=== PATIENT | male | born 1985 | race Caucasian/White ===

== ENCOUNTER 2019-11-28 02:54 | Emergency (ER) | payer OTHER ==
--- NOTE | 2019-11-28 03:26 | EDM.PDOC ---
ED HPI GENERAL MEDICAL PROBLEM - General Chief Complaint: Burn Stated Complaint: CHEMICAL PATRICIO TO FACE Time Seen by Provider: 11/28/19 03:10 Source of Information: Reports: Patient History Limitations: Reports: No Limitations - History of Present Illness INITIAL COMMENTS - FREE TEXT/NARRATIVE: This is a 34-year-old male. He was using a beta Cyfluthrin insecticide all day yesterday on and off and apparently got some on his face. He noted some burning yesterday evening and he washed his face thoroughly it did not seem to help so use soap and water to wash his face and that did not seem to help his face is still burning and slightly red so he comes to the ER for evaluation. He says he decontaminated himself according to the MSDS for this insecticide. He wants something to stop the burning. At this time what ever this insecticide is done for his skin is going to take time to resolve. Face/Facial Pain Score (Numeric/FACES): 6 - Related Data Allergies Allergy/AdvReac Type Severity Reaction Status Date / Time No Known Allergies Allergy Verified 11/28/19 03:08 Home Meds: Home Meds . [No Known Home Meds] 11/28/19 [History] Past Medical History - Past Surgical History Musculoskeletal Surgical History: Reports: Shoulder Surgery Social & Family History - Tobacco Use Smoking Status *Q: Never Smoker ED ROS GENERAL - Review of Systems Review Of Systems: See Below Constitutional: Reports: No Symptoms HEENT: Reports: No Symptoms Respiratory: Reports: No Symptoms Cardiovascular: Reports: No Symptoms Endocrine: Reports: No Symptoms GI/Abdominal: Reports: No Symptoms : Reports: No Symptoms Musculoskeletal: Reports: No Symptoms Skin: Reports: Other (As per HPI) Neurological: Reports: No Symptoms Psychiatric: Reports: No Symptoms Hematologic/Lymphatic: Reports: No Symptoms ED EXAM, BURN/SMOKE INHALATION - Physical Exam Exam: See Below Exam Limited By: No Limitations General Appearance: Alert, WD/WN, No Apparent Distress Eye Exam: Bilateral Eye: Normal Inspection, Other (He denies getting any of this chemical in his eyes.) Ears (Abbreviated): Normal External Exam Mouth/Throat: No Symptoms Reported Head: Other (He has some erythema across his nose and across his cheeks bilaterally but they do not extend into his lateral face or his forehead. It just appears to be a erythematous noninfected burn.) Neck: No Symptoms Respiratory: No Respiratory Distress Back Exam: Full Range of Motion Extremities: Normal Inspection, Normal Range of Motion Neurological: Alert, Oriented Psychiatric: Normal Affect, Normal Mood Skin Exam: Warm, Dry Course - Vital Signs Last Recorded V/S: Last Vital Signs Temp 97.5 F 11/28/19 03:04 Pulse 89 11/28/19 03:04 Resp 16 11/28/19 03:04 BP 140/95 H 11/28/19 03:04 Pulse Ox 98 11/28/19 03:04 - Re-Assessments/Exams Free Text/Narrative Re-Assessment/Exam: 11/28/19 03:29 I did speak to [facility] regarding this a chemical burn. They indicate that bacitracin ointment or triple antibiotic ointment might make it feel better and cool compresses but other than that it just takes time to heal. Departure - Departure Time of Disposition: 03:28 Disposition: Home, Self-Care 01 Condition: Fair Clinical Impression: Chemical burn of face Qualifiers: Encounter type: initial encounter Qualified Code(s): T20.40XA - Corrosion of unspecified degree of head, face, and neck, unspecified site, initial encounter - Discharge Information *PRESCRIPTION DRUG MONITORING PROGRAM REVIEWED*: Not Applicable *COPY OF PRESCRIPTION DRUG MONITORING REPORT IN PATIENT RENEE: Not Applicable Instructions: Chemical Burn, Adult, [id number] Referrals: PCP,None [Primary Care Provider] - Forms: ED Department Discharge, ED Return to Work/School Form Additional Instructions: Continue to use triple antibiotic ointment or bacitracin ointment for the next couple of days, stay out of the sun since a chemical burn and a sunburn will make this much worse, you may use cool compresses to the face to help with the burning, return to the ER if needed Sepsis Event Note (ED) - Evaluation Sepsis Screening Result: No Definite Risk - Focused Exam Vital Signs: Vital Signs Temp Pulse Resp BP Pulse Ox 11/28/19 03:04 97.5 F 89 16 140/95 H 98
== END 2019-11-28 03:38 | disposition home or self-care (01) ==
LOC: JD.ED 02:54
DX: T60.91XA Toxic effect of unspecified pesticide, accidental (unintentional), initial encounter (principal); T20.40XA Corrosion of unspecified degree of head, face, and neck, unspecified site, initial encounter; Y92.89 Other specified places as the place of occurrence of the external cause; Y99.0 Civilian activity done for income or pay
CPT/HCPCS: 99282; 99283

== ENCOUNTER 2019-12-12 13:39 | Emergency (ER) | payer OTHER ==
[2019-12-12] MEDS ORDERED: Lactated Ringers 1,000 ML IV ONE ×2 (14:12→16:29)
--- NOTE | 2019-12-12 14:15 | EDM.PDOC ---
ED HPI GENERAL MEDICAL PROBLEM - General Chief Complaint: General Stated Complaint: RAPID HEART RATE,SEEING YELLOW, WEAKNESS Time Seen by Provider: 12/12/19 13:54 Source of Information: Reports: Patient, Other (Friend) History Limitations: Reports: No Limitations - History of Present Illness INITIAL COMMENTS - FREE TEXT/NARRATIVE: Mr. Huber is a 34-year-old man with no chronic medical problems, who now presents to the ED complaining of generalized weakness, rapid palpitations, feeling hot and sweaty, and seeing yellow-tinged, spotty vision, ever since he woke up around 08:00 this morning. No recent fever, chills, cough, dyspnea, nausea, vomiting, or recent diarrhea. He states that he drank 2 shots of alcohol last night. He denies prior similar symptoms. He states that he did not take any [id number] or home remedies prior to coming to the ED. Here in the ED, the patient is initially found to be tachycardic at 104 bpm, otherwise, he is hemodynamically stable, afebrile, saturating 98% on room air. Other than this morning's symptoms, the patient denies recent fever, chills, sore throat, ear pain, nasal or sinus congestion, cough, dyspnea, chest pain, n ausea, vomiting, constipation, diarrhea, abdominal pain, urinary symptoms, recent weight gain or weight loss, recent bloody bowel movements or black bowel movements, recent joint aches, headaches, or rashes. The patient does not have a PCP. - Related Data Allergies Allergy/AdvReac Type Severity Reaction Status Date / Time No Known Allergies Allergy Verified 11/28/19 03:08 Home Meds: Home Meds . [No Known Home Meds] 11/28/19 [History] Past Medical History - Past Surgical History Musculoskeletal Surgical History: Reports: Shoulder Surgery (left, arthroscopic) Social & Family History - Family History Family Medical History: Noncontributory - Tobacco Use Smoking Status *Q: Former Smoker Tobacco Use Within Last Twelve Months: Smokeless Tobacco (Quit chewing tobacco around Jul 2019) Years of Tobacco use: 15 Packs/Tins Daily: 1 Month/Year Tobacco Last Used: Quit 2014 - Alcohol Use Alcohol Use History: Yes Alcohol Use Frequency: Socially - Recreational Drug Use Recreational Drug Use: Yes Drug Use in Last 12 Months: No Recreational Drug Type: Reports: Cocaine (hasn't snorted in "years"), Marijuana/Hashish (last smoked around 2009) - Living Situation & Occupation Living situation: Reports: Single, with Family 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 ED EXAM, GENERAL - Physical Exam Exam: See Below Exam Limited By: No Limitations General Appearance: Alert, No Apparent Distress, Thin Eye Exam: Bilateral Eye: EOMI, Normal Inspection Ears: Normal External Exam, Hearing Grossly Normal Nose: Normal Inspection Throat/Mouth: Normal Inspection, Normal Lips, Normal Voice, No Airway Compromise Head: Atraumatic, Normocephalic Neck: Normal Inspection, Full Range of Motion Respiratory/Chest: No Respiratory Distress, Lungs Clear, Normal Breath Sounds, No Accessory Muscle Use Cardiovascular: Normal Peripheral Pulses, No Edema, No Gallop, No JVD, No Murmur, No Rub, Tachycardia (regular) Peripheral Pulses: 3+: Radial (L), Radial (R) GI/Abdominal: Normal Bowel Sounds, Soft, Non-Tender, No Organomegaly, No Distention, No Abnormal Bruit, No Mass (Male) Exam: Deferred Rectal (Males) Exam: Deferred Back Exam: Normal Inspection, Full Range of Motion, NT Extremities: Normal Inspection, Normal Range of Motion, No Pedal Edema, Normal Capillary Refill Neurological: Alert, Oriented, CN II-XII Intact, Normal Cognition, No Motor/Sensory Deficits Psychiatric: Normal Affect Skin Exam: Warm, Dry, Intact, Normal Color, No Rash EKG INTERPRETATION EKG Date: 12/12/19 Time: 14:17 Rhythm: NSR Rate (Beats/Min): 86 [place]: Normal P-Wave: Present QRS: RBBB (incomplete) ST-T: Normal QT: Normal Comparison: NA - No Prior EKG Course - Vital Signs Last Recorded V/S: Last Vital Signs Temp 36.2 C 12/12/19 13:53 Pulse 104 H 12/12/19 13:53 Resp 16 12/12/19 13:53 BP 125/66 12/12/19 13:53 Pulse Ox 98 12/12/19 13:53 Orthostatic Blood Pressure [ 117/74 Standing] Orthostatic Blood Pressure [ 118/71 Supine] - Orders/Labs/Meds Orders: Active Orders 24 hr Category Date Time Status EKG Documentation Completion [RC] STAT Care 12/12/19 14:09 Active Orthostatic Vital Signs [RC] STAT Care 12/12/19 14:09 Active CORONAVIRUS COVID-19 PCR PHL Stat Lab 12/12/19 14:11 Ordered Labs: Laboratory Tests 12/12/19 12/12/19 12/12/19 Range/Units 14:45 14:45 14:45 WBC 15.08 H (4.23-9.07) K/mm3 RBC 5.27 (4.63-6.08) M/mm3 Hgb 15.5 (13.7-17.5) gm/dl Hct 45.9 (40.1-51.0) % MCV 87.1 (79.0-92.2) fl MCH 29.4 (25.7-32.2) pg MCHC 33.8 (32.2-35.5) g/dl RDW Std Deviation 40.1 (35.1-43.9) fL Plt Count 323 (163-337) K/mm3 MPV 9.8 (9.4-12.3) fl Neutrophils % (Manual) 89 H (40-60) % Band Neutrophils % 0 (0-10) % Lymphocytes % (Manual) 10 L (20-40) % Atypical Lymphs % 0 % Monocytes % (Manual) 0 L (2-10) % Eosinophils % (Manual) 0 L (0.8-7.0) % Basophils % (Manual) 1 (0.2-1.2) Toxic Granulation Platelet Estimate Adequate Plt Morphology Comment Normal RBC Morph Comment Normal D-Dimer, Quantitative 0.41 (0.19-0.50) mg/L Sodium 147 H (136-145) mEq/L Potassium 3.1 L (3.5-5.1) mEq/L Chloride 106 (98-107) mEq/L Carbon Dioxide 19 L (21-32) mEq/L Anion Gap 25.1 H (5-15) BUN 22 H (7-18) mg/dL Creatinine 1.5 H (0.7-1.3) mg/dL Est Cr Clr Drug Dosing 76.40 mL/min Estimated GFR (MDRD) 54 (>60) mL/min BUN/Creatinine Ratio 14.7 (14-18) Glucose 67 L (74-106) mg/dL Calcium 9.1 (8.5-10.1) mg/dL Magnesium 2.1 (1.8-2.4) mg/dl Total Bilirubin 0.3 (0.2-1.0) mg/dL AST 34 (15-37) U/L ALT 38 (16-63) U/L Alkaline Phosphatase 98 (46-116) U/L Troponin I < 0.017 (0.00-0.056) ng/mL C-Reactive Protein <0.2 (<1.0) mg/dL Total Protein 7.9 (6.4-8.2) g/dl Albumin 4.3 (3.4-5.0) g/dl Globulin 3.6 gm/dL Albumin/Globulin Ratio 1.2 (1-2) TSH 3rd Generation 0.790 (0.358-3.74) uIU/mL Urine Color (Yellow) Urine Appearance (Clear) Urine pH (5.0-8.0) Ur Specific [place] (1.005-1.030) Urine Protein (Negative) Urine Glucose (UA) (Negative) Urine Ketones (Negative) Urine Occult Blood (Negative) Urine Nitrite (Negative) Urine Bilirubin (Negative) Urine Urobilinogen (0.2-1.0) Ur Leukocyte Esterase (Negative) Urine RBC (0-5) /hpf Urine WBC (0-5) /hpf Ur Squamous Epith Cells (0-5) /hpf Urine Bacteria (FEW) /hpf Urine Mucus (FEW) /hpf Urine Opiates Screen (APAWRE=823) Ur Buprenorphine Scrn (CUTOFF=10) Ur Oxycodone Screen (ABB0IU=068) Urine Methadone Screen (RRE2RN=783) Ur Propoxyphene Screen (CWZBBO=112) Ur Barbiturates Screen (DHSENR=807) Ur Tricyclics Screen (RABEBM=375) Ur Phencyclidine Scrn (CUTOFF=25) Ur Amphetamine Screen (UTNACU=725) U Methamphetamines Scrn (RDIWUW=877) U Benzodiazepines Scrn (HQMXTE=402) U Cocaine Metab Screen (HDTIZH=603) U Marijuana (THC) Screen (CUTOFF=50) 12/12/19 12/12/19 12/12/19 Range/Units 18:08 18:12 18:12 WBC (4.23-9.07) K/mm3 RBC (4.63-6.08) M/mm3 Hgb (13.7-17.5) gm/dl Hct (40.1-51.0) % MCV (79.0-92.2) fl MCH (25.7-32.2) pg MCHC (32.2-35.5) g/dl RDW Std Deviation (35.1-43.9) fL Plt Count (163-337) K/mm3 MPV (9.4-12.3) fl Neutrophils % (Manual) (40-60) % Band Neutrophils % (0-10) % Lymphocytes % (Manual) (20-40) % Atypical Lymphs % % Monocytes % (Manual) (2-10) % Eosinophils % (Manual) (0.8-7.0) % Basophils % (Manual) (0.2-1.2) Toxic Granulation Platelet Estimate Plt Morphology Comment RBC Morph Comment D-Dimer, Quantitative (0.19-0.50) mg/L Sodium 141 (136-145) mEq/L Potassium 4.4 (3.5-5.1) mEq/L Chloride 105 (98-107) mEq/L Carbon Dioxide 22 (21-32) mEq/L Anion Gap 18.4 H (5-15) BUN 19 H (7-18) mg/dL Creatinine 1.3 (0.7-1.3) mg/dL Est Cr Clr Drug Dosing 88.15 mL/min Estimated GFR (MDRD) > 60 (>60) mL/min BUN/Creatinine Ratio 14.6 (14-18) Glucose 76 (74-106) mg/dL Calcium 8.6 (8.5-10.1) mg/dL Magnesium (1.8-2.4) mg/dl Total Bilirubin (0.2-1.0) mg/dL AST (15-37) U/L ALT (16-63) U/L Alkaline Phosphatase (46-116) U/L Troponin I (0.00-0.056) ng/mL C-Reactive Protein (<1.0) mg/dL Total Protein (6.4-8.2) g/dl Albumin (3.4-5.0) g/dl Globulin gm/dL Albumin/Globulin Ratio (1-2) TSH 3rd Generation (0.358-3.74) uIU/mL Urine Color Light yellow (Yellow) Urine Appearance Clear (Clear) Urine pH 5.5 (5.0-8.0) Ur Specific [place] > or = 1.030 (1.005-1.030) Urine Protein Negative (Negative) Urine Glucose (UA) Negative (Negative) Urine Ketones 2+ H (Negative) Urine Occult Blood Negative (Negative) Urine Nitrite Negative (Negative) Urine Bilirubin Negative (Negative) Urine Urobilinogen 0.2 (0.2-1.0) Ur Leukocyte Esterase Negative (Negative) Urine RBC 0-5 (0-5) /hpf Urine WBC 0-5 (0-5) /hpf Ur Squamous Epith Cells 0-5 (0-5) /hpf Urine Bacteria Rare (FEW) /hpf Urine Mucus Few (FEW) /hpf Urine Opiates Screen Negative (EXBAVC=764) Ur Buprenorphine Scrn Negative (CUTOFF=10) Ur Oxycodone Screen Negative (NYV1GW=904) Urine Methadone Screen Negative (TDK1ZR=874) Ur Propoxyphene Screen Negative (NHUWEB=640) Ur Barbiturates Screen Negative (RDFGSK=178) Ur Tricyclics Screen Negative (XNQHVD=687) Ur Phencyclidine Scrn Negative (CUTOFF=25) Ur Amphetamine Screen Negative (QKNRWQ=546) U Methamphetamines Scrn Negative (HMPFZT=964) U Benzodiazepines Scrn Negative (QIJGRQ=583) U Cocaine Metab Screen Negative (TOWYAR=318) U Marijuana (THC) Screen Negative (CUTOFF=50) Meds: Medications Discontinued Medications Generic Name Dose Route Start Last Admin Trade Name Freq PRN Reason Stop Dose Admin Lactated Ringer's 1,000 mls @ 999 mls/hr 12/12/19 14:12 12/12/19 14:48 Ringers, Lactated IV 12/12/19 15:12 999 mls/hr .BOLUS ONE Administration Lactated Ringer's 1,000 mls @ 999 mls/hr 12/12/19 16:29 12/12/19 16:46 Ringers, Lactated IV 12/12/19 17:29 999 mls/hr .BOLUS ONE Administration Potassium Chloride 40 meq 12/12/19 16:29 12/12/19 16:46 Klor-Con M20 PO 12/12/19 16:30 40 meq ONETIME ONE Administration - Re-Assessments/Exams Free Text/Narrative Re-Assessment/Exam: 12/12/19 14:13 As above, the patient woke around 08:00 this morning with generalized weakness, rapid palpitations, feeling hot and sweaty, and seeing everything yellowish tinged and spotty. He is mildly tachycardic, but otherwise afebrile with a normal oxygen saturation on room air, and his physical exam is otherwise unremarkable. The etiology of the patient's symptoms is not immediately obvious, therefore I have ordered a work-up that includes blood work, a urinalysis, a urine drug screen, orthostatics, a chest x-ray, and an ECG. In the meantime, the patient will be given IV fluid. 12/12/19 15:22 Strictly speaking, the patient is not orthostatic, however, it is close. As above, the patient is being treated with IV fluid, anyway. 2-view radiograph of the chest is read by Dr. Kramer as: 1. Nothing acute is appreciated on 2 view chest x-ray. 12/12/19 16:21 The patient's CBC is remarkable for WBC count elevated at 15.08, but with only 0% bandemia. The remainder of his CBC is unremarkable. His CMP is remarkable for a sodium elevated at 147, and a potassium depressed at 3.1. His bicarbonate is depressed at 19, with an anion gap elevated at 25.1. His BUN/Cr is elevated at 22/1.5, his blood glucose is mildly depressed at 67. The remainder of his CMP is unremarkable. His magnesium level is within normal limits at 2.1. His TSH is within normal limits at 0.790. His troponin is undetectably low. His D-dimer is within normal limits at 0.41. His CRP is undetectably low. The patient has not yet provided a urine sample for the urinalysis and urine drug screen. Based on the above, I will order a second liter of LR wide open, along with 40 mEq of oral KCl. 12/12/19 17:55 Notified that the second liter of IV fluid has finished infusing. The patient has still not provided a urine sample. I have ordered a BMP to assess how well his metabolic acidosis is improving. 12/12/19 18:48 The patient's repeat BMP is now remarkable for an anion gap mildly elevated at 18.4, but with a bicarbonate normal at 22. His BUN is slightly elevated at 19, with a Cr normal at 1.3. The remainder of his BMP is unremarkable. His urinalysis is remarkable for 2+ ketones, and is otherwise completely normal. His urine drug screen is completely negative. 12/12/19 18:53 Test results discussed with the patient. As above, the patient's initial chemistry panel indicated some degree of dehydration with an anion gap metabolic acidosis and hypokalemia, which has essentially resolved following 2 L of IV fluid and oral KCl. The remainder of his work-up was completely unremarkable. He states that he is feeling considerably better, and requested a sandwich, which has been provided to him. The patient stated that he did not understand how he can get dehydrated, since he was drinking water yesterday. I explained that the labs do not tell us how he became dehydrated, only that he was dehydrated. Going forward, I recommended that he stay adequately hydrated with electrolyte-containing fluid, such as Gatorade or Powerade. Departure - Departure Time of Disposition: 18:56 Disposition: Home, Self-Care 01 Condition: Good Clinical Impression: Dehydration, High anion gap metabolic acidosis, Hypokalemia - Discharge Information *PRESCRIPTION DRUG MONITORING PROGRAM REVIEWED*: Not Applicable *COPY OF PRESCRIPTION DRUG MONITORING REPORT IN PATIENT RENEE: Not Applicable Referrals: PCP,None [Primary Care Provider] - Forms: ED Department Discharge Additional Instructions: You were seen in the emergency room after waking up today feeling generally weak, with rapid palpitations, feeling hot and sweaty, and with yellow-tinged, spotty vision. Work-up in the ER included blood work, a urinalysis, a urine drug screen, positional blood pressure checks, a chest x-ray, and an ECG. Your work-up found that you had mild dehydration, with an anion gap metabolic acidosis and low potassium. You were treated with 2 L of IV fluid and oral potassium chloride, and your subsequent labs showed nearly complete resolution. The remainder of your work-up was completely unremarkable. You are not anemic. You have not suffered a heart attack. You do not have a blood clot in your lungs. You do not have pneumonia. You do not have a urinary tract infection. There is no sign of vasculitis (inflammation of the blood vessels). You are not hypothyroid. Going forward, we recommend that you stay adequately hydrated with electrolyte- containing fluid, such as Gatorade or Powerade. If any other problems, please do not hesitate to return to the ER. Sepsis Event Note (ED) - Evaluation Sepsis Screening Result: No Definite Risk - Focused Exam Vital Signs: Vital Signs Temp Pulse Resp BP Pulse Ox 12/12/19 13:53 36.2 C 104 H 16 125/66 98 - My Orders Last 24 Hours: My Active Orders 12/12/19 14:09 EKG Documentation Completion [RC] STAT Orthostatic Vital Signs [RC] STAT 12/12/19 14:11 CORONAVIRUS COVID-19 PCR PHL Stat - Assessment/Plan Last 24 Hours: My Active Orders 12/12/19 14:09 EKG Documentation Completion [RC] STAT Orthostatic Vital Signs [RC] STAT 12/12/19 14:11 CORONAVIRUS COVID-19 PCR PHL Stat
--- NOTE | 2019-12-12 15:14 | CR ---
Chest: 2 views of the chest were obtained. Comparison: No prior chest x-ray. Heart size and mediastinum are normal. Lungs are clear with no acute parenchymal change. Bony structures are grossly intact. Impression: 1. Nothing acute is appreciated on 2 view chest x-ray. Diagnostic code #1 This report was dictated in MDT
[2019-12-12] MEDS ORDERED: Potassium Chloride 20 MEQ Tab.ER PO ONE (16:29)
== END 2019-12-12 19:15 | disposition home or self-care (01) ==
LOC: JD.ED 13:39
DX: E87.6 Hypokalemia (principal); E86.0 Dehydration; E87.2 Acidosis; Z20.828 Contact with and (suspected) exposure to other viral communicable diseases; Z87.891 Personal history of nicotine dependence
CPT/HCPCS: 36415; 71046; 80048; 80053; 80306; 81001; 83735; 84443; 84484; 85007; 85027; 85379; 86140; 87635; 93005; 96360; 96361; 99285; A9270; J7120; 93010; 99283; U0002

== ENCOUNTER 2020-01-31 14:59 | Emergency (ER) | payer OTHER ==
[2020-01-31] MEDS ORDERED: Lidocaine 1% 10 ML MDV INJECT ONE (15:40)
--- NOTE | 2020-01-31 15:43 | EDM.PDOC ---
ED HPI GENERAL MEDICAL PROBLEM - General Chief Complaint: Laceration Stated Complaint: L THUMB LAC Time Seen by Provider: 01/31/20 15:06 Source of Information: Reports: Patient, RN Notes Reviewed History Limitations: Reports: No Limitations - History of Present Illness INITIAL COMMENTS - FREE TEXT/NARRATIVE: Patient is a 34-year-old male who presents to the ED for evaluation of a left thumb laceration. He was at work, cutting something with utility knife, and he ended up lacerating his left thumb. This is near the DIP joint, on the radius aspect of the thumb. This does not involve the nail. He has no numbness or tingling distal to the injury. This is roughly 1 cm and fairly linear. He states he is up-to-date on his immunizations, and he denies any sick-like sympt oms, fever/chills, cough/shortness of breath, nausea/vomiting/diarrhea. Left Finger-Thumb Pain Score (Numeric/FACES): 4 - Related Data Allergies Allergy/AdvReac Type Severity Reaction Status Date / Time No Known Allergies Allergy Verified 01/31/20 15:09 Home Meds: Home Meds . 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 ED EXAM, SKIN/RASH Exam: See Below Exam Limited By: No Limitations General Appearance: Alert, WD/WN, No Apparent Distress Respiratory/Chest: No Respiratory Distress, Lungs Clear, Normal Breath Sounds, No Accessory Muscle Use, Chest Non-Tender Cardiovascular: Normal Peripheral Pulses, Regular Rate, Rhythm, No Murmur Peripheral Pulses: 2+: Radial (L), Radial (R) Extremities: Normal Inspection, Normal Capillary Refill Neurological: Alert, Oriented, Normal Cognition, No Motor/Sensory Deficits Psychiatric: Normal Affect, Normal Mood Skin: Warm, Dry, Normal Color, No Rash, Wound/Incision (1cm linear laceration to left thumb DIP on radius aspect of thumb) ED SKIN PROCEDURES - Laceration/Wound Repair Left Lateral Distal Digit - 1st (Thumb) Appearance: Superficial Distal NVT: Neuro & Vascular Intact, No Tendon Injury Anesthetic Type: Local Local Anesthesia - Lidocaine (Xylocaine): 1% Plain Local Anesthetic Volume: 2cc Skin Prep: Chlorhexidine (Hibiciens), Saline Exploration/Debridement/Repair: Wound Explored, In a Bloodless Field, Explored to Base, No Foreign Material Found Closed with: Sutures Lac/Wound length In cm: 1 Suture Size: 4-0 # of Sutures: 3 Suture Type: Prolene, Interrupted, Simple Sterile Dressing Applied: Nurse Tetanus Status Addressed: Yes Complications: No Course - Vital Signs Last Recorded V/S: Last Vital Signs Temp 97.8 F 01/31/20 15:05 Pulse 85 01/31/20 15:05 Resp 18 01/31/20 15:05 BP 149/89 H 01/31/20 15:05 Pulse Ox 98 01/31/20 15:05 - Orders/Labs/Meds Meds: Medications Discontinued Medications Generic Name Dose Route Start Last Admin Trade Name Freq PRN Reason Stop Dose Admin Lidocaine HCl 10 ml 01/31/20 15:40 Xylocaine 1% INJECT 01/31/20 15:41 ONETIME ONE Departure - Departure Time of Disposition: 15:43 Disposition: Home, Self-Care 01 Condition: Good Clinical Impression: Thumb laceration Qualifiers: Encounter type: initial encounter Damage to nail status: without damage Foreign body presence: without foreign body Laterality: left Qualified Code(s): S61.012A - Laceration without foreign body of left thumb without damage to nail, initial encounter - Discharge Information *PRESCRIPTION DRUG MONITORING PROGRAM REVIEWED*: No *COPY OF PRESCRIPTION DRUG MONITORING REPORT IN PATIENT RENEE: No Instructions: Sutured Wound Care, [id number] Referrals: Damaris Lemus NP [Primary Care Provider] - Forms: ED Department Discharge Additional Instructions: You have been evaluated in the ED for your laceration. Sutures will need to stay in for 10-14 days. You may return to the ED or any clinic for removal. Please keep this area clean and dry, you may cleanse with regular soap and water. No vigorous scrubbing. Please try to avoid submerging the affected area in water for prolonged periods of time until the sutures are removed. Watch out for signs of infection like increased redness, swelling, pain at the laceration site, or if you should develop any fevers or chills. Please return to ED if your symptoms change or worsen. Sepsis Event Note (ED) - Evaluation Sepsis Screening Result: No Definite Risk - Focused Exam Vital Signs: Vital Signs Temp Pulse Resp BP Pulse Ox 01/31/20 15:05 97.8 F 85 18 149/89 H 98
== END 2020-01-31 16:45 | disposition home or self-care (01) ==
LOC: JD.ED 14:59
DX: S61.012A Laceration without foreign body of left thumb without damage to nail, initial encounter (principal); F17.210 Nicotine dependence, cigarettes, uncomplicated; W26.0XXA Contact with knife, initial encounter; Y99.0 Civilian activity done for income or pay
CPT/HCPCS: 12001; 99282; 99282-25

== ENCOUNTER 2021-04-25 02:07 | Emergency (ER) | payer OTHER ==
[2021-04-25] MEDS ORDERED: Diltiazem 50 MG/10 ML SDV IVPUSH STA (02:53)
[2021-04-25] MEDS ORDERED: Diltiazem 100 MG in Sodium Chloride 0.9% 100 ML IV SCH (03:00)
[2021-04-25] MEDS ORDERED: Sodium Chloride 0.9% 1,000 ML IV SCH (03:00)
--- NOTE | 2021-04-25 03:03 | EDM.PDOC ---
ED HPI GENERAL MEDICAL PROBLEM - General Chief Complaint: Cardiovascular Problem Stated Complaint: HEART RACING Time Seen by Provider: 04/25/21 02:37 Source of Information: Reports: Patient History Limitations: Reports: No Limitations - History of Present Illness INITIAL COMMENTS - FREE TEXT/NARRATIVE: Mr. Huber is a very pleasant 35-year-old gentleman who now presents the ED with rapid palpitations that developed suddenly around 02 100 this morning, just after he went to bed. He has no associated chest pain, lightheadedness, dyspnea, or any other symptoms. No prior similar symptoms. An ECG obtained at triage demonstrates atrial fibrillation with RVR. The patient states that he does not drink caffeine or take drugs. No alcohol in the past 1.5 months. At triage, the patient's initial BP was found to be mildly elevated at 152/108, otherwise, he was hemodynamically stable, afebrile, saturating 95% on room air. He appears to be comfortable, in no acute distress. Prior to this morning, the patient denies having a recent fever, chills, sore throat, ear pain, nasal or sinus congestion, cough, dyspnea, chest pain, palpitations, nausea, vomiting, constipation, diarrhea, abdominal pain, urinary symptoms, recent weight gain or weight loss, recent bloody bowel movements or black bowel movements, recent joint aches, headaches, or rashes. The patient's PCP is Damaris Lemus NP. He has not received a COVID vaccination, nor an influenza vaccination this season. - Related Data Allergies Allergy/AdvReac Type Severity Reaction Status Date / Time No Known Allergies Allergy Verified 01/31/20 15:09 Home Meds: Home Meds . [No Known Home Meds] 11/28/19 [History] Past Medical History Psychiatric History: Reports: Anxiety (untreated) - Past Surgical History Musculoskeletal Surgical History: Reports: Shoulder Surgery (left, arthroscopic) Social & Family History - Tobacco Use Tobacco Use Status *Q: Former Tobacco User Tobacco Use Within Last Twelve Months: Smokeless Tobacco (Quit chewing tobacco around Jul 2019) Years of Tobacco use: 19 Packs/Tins Daily: 1 Month/Year Tobacco Last Used: Quit October 2020 Tobacco Use Comment: Started smoking 2001 - Caffeine Use Caffeine Use: Reports: None - Alcohol Use Alcohol Use History: Yes Alcohol Use Frequency: Socially - Recreational Drug Use Recreational Drug Use: Yes Drug Use in Last 12 Months: No Recreational Drug Type: Reports: Cocaine (hasn't snorted in "years"), Marijuana /Hashish (last smoked 2009) - Living Situation & Occupation Living situation: Reports: Single, with Family 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 ED EXAM, GENERAL - Physical Exam Exam: See Below Exam Limited By: No Limitations General Appearance: Alert, WD/WN, No Apparent Distress Eye Exam: Bilateral Eye: EOMI, Normal Inspection Ears: Normal External Exam, Hearing Grossly Normal Nose: Normal Inspection Throat/Mouth: Normal Inspection, Normal Lips, Normal Voice, No Airway Compromise Head: Atraumatic, Normocephalic Neck: Normal Inspection, Full Range of Motion Respiratory/Chest: No Respiratory Distress, Lungs Clear, Normal Breath Sounds, No Accessory Muscle Use Cardiovascular: Normal Peripheral Pulses, No Edema, No Gallop, No JVD, No Murmur, No Rub, Tachycardia, Irregularly Irregular Peripheral Pulses: 3+: Radial (L), Radial (R) GI/Abdominal: Normal Bowel Sounds, Soft, Non-Tender, No Organomegaly, No Distention, No Abnormal Bruit, No Mass Back Exam: Normal Inspection, Full Range of Motion, NT Extremities: Normal Inspection, Normal Range of Motion, No Pedal Edema, Normal Capillary Refill Neurological: Alert, Oriented, Normal Cognition, No Motor/Sensory Deficits Psychiatric: Normal Affect Skin Exam: Warm, Dry, Intact, Normal Color, No Rash #1 Interpretation EKG Date: 04/25/21 Time: 02:22 Rhythm: A-Fib Rate (Beats/Min): 123 [place]: Normal P-Wave: Present QRS: Normal ST-T: Normal QT: Normal Comparison: Change From Previous EKG (Was in NSR 12/12/2019) #2 Interpretation EKG Date: 04/25/21 Time: 05:06 Rhythm: Other (Sinus bradycardia) Rate (Beats/Min): 58 [place]: Normal P-Wave: Present QRS: Normal ST-T: Normal (J-point elevation V3-V6, II, aVF, but no T wave inversions or other ischemic changes) QT: Normal Comparison: Change From Previous EKG Course - Vital Signs Last Recorded V/S: Last Vital Signs Temp 36.4 C 04/25/21 05:13 Pulse 65 04/25/21 05:13 Resp 16 04/25/21 05:13 BP 113/81 04/25/21 05:13 Pulse Ox 97 04/25/21 05:13 - Orders/Labs/Meds Orders: Active Orders 24 hr Category Date Time Status Chest 1V Frontal [CR] Stat Exams 04/25/21 02:55 Taken Diltiazem [Cardizem] 100 mg Med 04/25/21 03:00 Active Sodium Chloride 0.9% [Normal Saline AdvBag] 100 ml IV TITRATE Sodium Chloride 0.9% [Normal Saline] 1,000 ml Med 04/25/21 03:00 Active IV ASDIRECTED Medication Orders Diltiazem HCl 100 mg/ Sodium (Chloride) 100 mls @ 10 mls/hr IV TITRATE VAISHALI; Protocol Last Titration: 04/25/21 05:05 Dose: 0 mg/hr, 0 mls/hr Documented by: Admin: 04/25/21 03:36 Dose: 10 mg/hr, 10 mls/hr Documented by: NINOSKA Sodium Chloride (Normal Saline) 1,000 mls @ 80 mls/hr IV ASDIRECTED VAISHALI Last Infusion: 04/25/21 05:39 Dose: 0 mls/hr Documented by: Admin: 04/25/21 03:39 Dose: 80 mls/hr Documented by: NINOSKA Labs: Laboratory Tests 04/25/21 04/25/21 04/25/21 Range/Units 02:33 02:33 02:33 WBC 6.17 (4.23-9.07) K/mm3 RBC 5.41 (4.63-6.08) M/mm3 Hgb 16.1 (13.7-17.5) gm/dl Hct 46.1 (40.1-51.0) % MCV 85.2 (79.0-92.2) fl MCH 29.8 (25.7-32.2) pg MCHC 34.9 (32.2-35.5) g/dl RDW Std Deviation 37.6 (35.1-43.9) fL Plt Count 273 (163-337) K/mm3 MPV 9.5 (9.4-12.3) fl Neut % (Auto) 51.6 (34.0-67.9) % Lymph % (Auto) 35.0 (21.8-53.1) % Sharkey % (Auto) 9.2 (5.3-12.2) % Eos % (Auto) 2.9 (0.8-7.0) Baso % (Auto) 1.1 (0.1-1.2) % Neut # (Auto) 3.18 (1.78-5.38) K/mm3 Lymph # (Auto) 2.16 (1.32-3.57) K/mm3 Sharkey # (Auto) 0.57 (0.30-0.82) K/mm3 Eos # (Auto) 0.18 (0.04-0.54) K/mm3 Baso # (Auto) 0.07 (0.01-0.08) K/mm3 PT 10.3 (9.7-12.0) SECONDS INR 0.93 APTT 21.9 (21.7-31.4) SECONDS D-Dimer, Quantitative 0.42 (0.19-0.50) mg/L Sodium 142 (136-145) mEq/L Potassium 3.6 (3.5-5.1) mEq/L Chloride 101 (98-107) mEq/L Carbon Dioxide 30 (21-32) mEq/L Anion Gap 14.6 (5-15) BUN 16 (7-18) mg/dL Creatinine 1.2 (0.7-1.3) mg/dL Est Cr Clr Drug Dosing 100.17 mL/min Estimated GFR (MDRD) > 60 (>60) mL/min BUN/Creatinine Ratio 13.3 L (14-18) Glucose 119 H (70-99) mg/dL Calcium 9.5 (8.5-10.1) mg/dL Magnesium 2.2 (1.8-2.4) mg/dL Troponin I < 0.017 (0.00-0.056) ng/mL TSH 3rd Generation 2.868 (0.358-3.74) uIU/mL SARS-CoV-2 RNA (DB) (NEGATIVE) 04/25/21 Range/Units 03:23 WBC (4.23-9.07) K/mm3 RBC (4.63-6.08) M/mm3 Hgb (13.7-17.5) gm/dl Hct (40.1-51.0) % MCV (79.0-92.2) fl MCH (25.7-32.2) pg MCHC (32.2-35.5) g/dl RDW Std Deviation (35.1-43.9) fL Plt Count (163-337) K/mm3 MPV (9.4-12.3) fl Neut % (Auto) (34.0-67.9) % Lymph % (Auto) (21.8-53.1) % Sharkey % (Auto) (5.3-12.2) % Eos % (Auto) (0.8-7.0) Baso % (Auto) (0.1-1.2) % Neut # (Auto) (1.78-5.38) K/mm3 Lymph # (Auto) (1.32-3.57) K/mm3 Sharkey # (Auto) (0.30-0.82) K/mm3 Eos # (Auto) (0.04-0.54) K/mm3 Baso # (Auto) (0.01-0.08) K/mm3 PT (9.7-12.0) SECONDS INR APTT (21.7-31.4) SECONDS D-Dimer, Quantitative (0.19-0.50) mg/L Sodium (136-145) mEq/L Potassium (3.5-5.1) mEq/L Chloride (98-107) mEq/L Carbon Dioxide (21-32) mEq/L Anion Gap (5-15) BUN (7-18) mg/dL Creatinine (0.7-1.3) mg/dL Est Cr Clr Drug Dosing mL/min Estimated GFR (MDRD) (>60) mL/min BUN/Creatinine Ratio (14-18) Glucose (70-99) mg/dL Calcium (8.5-10.1) mg/dL Magnesium (1.8-2.4) mg/dL Troponin I (0.00-0.056) ng/mL TSH 3rd Generation (0.358-3.74) uIU/mL SARS-CoV-2 RNA (DB) Negative (NEGATIVE) Meds: Medications Generic Name Dose Route Start Last Admin Trade Name Freq PRN Reason Stop Dose Admin Diltiazem HCl 100 mg/ Sodium 100 mls @ 10 mls/hr 04/25/21 03:00 04/25/21 05:05 Chloride IV 0 mg/hr TITRATE VAISHALI 0 mls/hr Titration Protocol 10 MG/HR Sodium Chloride 1,000 mls @ 80 mls/hr 04/25/21 03:00 04/25/21 05:39 Normal Saline IV 0 mls/hr ASDIRECTED VAISHALI Infusion Discontinued Medications Generic Name Dose Route Start Last Admin Trade Name Pericoq PRN Reason Stop Dose Admin Diltiazem HCl 10 mg 04/25/21 02:53 04/25/21 03:25 Diltiazem 50 Mg/10 Ml Sdv IVPUSH 04/25/21 02:54 10 mg ONETIME STA Administration - Re-Assessments/Exams Free Text/Narrative Re-Assessment/Exam: 04/25/21 02:58 I have ordered numerous blood tests, a portable chest x-ray, and a swab for the SARS-CoV-2 virus. In the meantime, the patient will be given diltiazem 10 mg IVP followed by a diltiazem drip at 10 mg/h, along with gentle hydration. The patient's [id number] risk stratification score = 0, therefore I will not be recommending anticoagulation. 04/25/21 03:48 Portable chest radiograph appears to be grossly normal. The cardiac silhouette is within normal limits. No pulmonary vascular congestion. No pleural effusions seen on this AP view. No focal infiltrate. No pneumothorax. Formal read per the Radiologist pending. The patient's CBC is unremarkable. His BMP is remarkable for slight hyperglycemia of 119, and is otherwise unremarkable. His magnesium level is within normal limits at 2.2. His TSH is within normal limits at 2.868. His troponin is undetectably low. His D-dimer is within normal limits at 0.42. His coags are within normal limits. Results of the patient's swab for the SARS-CoV-2 virus is still pending. At present, the patient's youth nutritional monitor indicates atrial fibrillation with a HR of 82, with a BP of 123/98, SpO2 94% on room air. 04/25/21 04:26 The patient's swab for the SARS-CoV-2 virus is negative. At this time, the patient's youth nutritional monitor indicates atrial fibrillation with a HR at 68, with a BP of 116/90, SpO2 95% on room air. 04/25/21 04:35 Test results discussed with the patient. I recommended admission to the ICU for continued care. He agreed. 04/25/21 04:[address] Garay at 04:35. He agreed to admit the patient to the ICU. I will write bridge orders. 04/25/21 04:59 The patient appears to have converted to a normal sinus rhythm. I ordered discontinuation of the diltiazem drip and a repeat ECG. 04/25/21 05:29 The repeat ECG confirms a sinus bradycardia 58 bpm. I will discharge the patient home with an outpatient order for an echocardiogram, with results to go to his PCP, Damaris Lemus NP. She will then need to refer the patient to a endocrinology nurse for further evaluation. The patient requested a note to be off work today. Departure - Departure Time of Disposition: 05:35 Disposition: Home, Self-Care 01 Condition: Good Clinical Impression: Atrial fibrillation with rapid ventricular response, New onset atrial fibrillation Instructions: Atrial Fibrillation, [id number] Referrals: Damaris Lemus NP [Primary Care Provider] - Forms: ED Department Discharge, ED Return to Work/School Form Additional Instructions: You were seen in the emergency room after developing rapid palpitations as you were going to bed. Work-up in the ER included numerous blood tests, a swab for the SARS-CoV-2 virus, a chest x-ray, and 2 ECGs. Your initial ECG confirmed that you were in atrial fibrillation with rapid ventricular response. Your heart rate was reduced with IV diltiazem. Your heart converted to a normal sinus rhythm spontaneously, as confirmed by the second ECG. An order for an outpatient echocardiogram has been submitted. You will be contacted by the ultrasound department. The results are to go to your PCP, Damaris Lemus NP. When you follow-up with Ms. Lemus, you should be referred to a [facility] Coordinator. If any other problems, including recurrence of your symptoms, please do not hesitate to return to the ER. Sepsis Event Note (ED) - Evaluation Sepsis Screening Result: No Definite Risk - Focused Exam Vital Signs: Vital Signs Temp Pulse Resp BP Pulse Ox 04/25/21 05:13 36.4 C 65 16 113/81 97 04/25/21 04:03 36.3 C 72 18 116/90 95 04/25/21 02:18 36.3 C 98 18 152/108 H 95 - My Orders Last 24 Hours: My Active Orders 04/25/21 02:55 Chest 1V Frontal [CR] Stat 04/25/21 03:00 Diltiazem [Cardizem] 100 mg Sodium Chloride 0.9% [Normal Saline AdvBag] 100 ml IV TITRATE Sodium Chloride 0.9% [Normal Saline] 1,000 ml IV ASDIRECTED - Assessment/Plan Last 24 Hours: My Active Orders 04/25/21 02:55 Chest 1V Frontal [CR] Stat 04/25/21 03:00 Diltiazem [Cardizem] 100 mg Sodium Chloride 0.9% [Normal Saline AdvBag] 100 ml IV TITRATE Sodium Chloride 0.9% [Normal Saline] 1,000 ml IV ASDIRECTED
--- NOTE | 2021-04-25 07:37 | CR ---
Chest: Portable view of the chest was obtained. Comparison: Prior chest x-ray of 12/12/19. Heart size and mediastinum are within normal limits. Lungs are clear with no acute parenchymal change. Bony structures show nothing acute. Impression: 1. Nothing acute is seen on portable chest x-ray. Diagnostic code #1
== END 2021-04-25 05:53 | disposition home or self-care (01) ==
LOC: JD.ED 02:07
DX: I48.91 Unspecified atrial fibrillation (principal); Z87.891 Personal history of nicotine dependence; Z20.822 Contact with and (suspected) exposure to COVID-19
CPT/HCPCS: 36415; 71045; 80048; 83735; 84443; 84484; 85025; 85379; 85610; 85730; 87635; 93005; 96365; 99285; J3490; J7030; U0002